=== PATIENT | female | born 1950 | race Caucasian/White ===

== ENCOUNTER → 2018-03-20 | Outpatient (CLI) | payer MEDICARE, BC ==
[~2018-03-20] MED LIST: ACIPHEX 20 MG T20 MG PO; APAP500 PO; ASPIRIN325 PO; COLACE100 MG PO; COREG3.125 MG PO; CYCLOBENZAPRINE5 MG PO; FISH OIL 1,001000 M2 PO; HYDROCHLOROTH12.5 M1 PO; HYDROCODON-ACE1 EAC7 PO; HYDROCODONE-AP1 EAC6 PO; IBUPROFEN 800800 M1 PO; LEVOTHYROXINE0.05 MG PO; MEDROLDOSEPACK PO; NORCO 10-325 T1 EACH PO; ONDANSETRON HCL4 M2 PO; OXYCODONE HCL 55 MG PO; PENICILLIN V P500 MG PO; PRINIVIL20 MG PO; VITAMIN D1000 UNI1 PO; XARELTO10 MG PO
== END ==
LOC: M.RAD 14:46
DX: M47.814 Spondylosis without myelopathy or radiculopathy, thoracic region (principal); M41.86 Other forms of scoliosis, lumbar region; M25.78 Osteophyte, vertebrae; K44.9 Diaphragmatic hernia without obstruction or gangrene; J98.11 Atelectasis; I51.7 Cardiomegaly

== ENCOUNTER → 2018-07-07 | Outpatient (CLI) | payer MEDICARE, BC | LOC: M.LAB 04:48 | DX: Z01.812 Encounter for preprocedural laboratory examination (principal) ==

== ENCOUNTER → 2018-07-09 | Outpatient (CLI) | payer MEDICARE, BC ==
[2018-07-09 09:56] LABS: ABSOLUTE EOSINOPHILS 0.1 thou/uL (0.0-0.7); ABSOLUTE LYMPHOCYTES 1.2 thou/uL (0.8-5.3); ABSOLUTE MONOCYTES 0.6 thou/uL (0.0-1.2); ABSOLUTE NEUTROPHILS 1.8 thou/uL (1.6-8.1); EOSINOPHILS 3.4 %; HEMATOCRIT 39.7 % (37.0-47.0); HEMOGLOBIN 13.4 gm/dL (12.0-15.0); LYMPHOCYTES 32.4 %; MCH 31.5 pg (26.0-34.0); MCHC 33.8 g/dL (28.0-37.0); MCV 93.2 fL (80.0-100.0); MONOCYTES 16.3 %; MPV 7.4 fl. (7.2-11.1); NUCLEATED RBCS 0 /100WBC; PLATELET COUNT* 315 thou/uL (150-400); POLYS 46.9 %; RBC 4.26 mil/uL (4.20-5.00); RDW-CV 13.5 % (10.5-14.5); WBC 3.8 thou/uL (4.0-11.0)
[2018-07-09 10:11] LABS: ALBUMIN 3.3 g/dL (3.4-5.0); CALCIUM 8.9 mg/dL (8.5-10.1); CREATININE 1.1 mg/dL (0.6-1.3); TOTAL BILIRUBIN 0.8 mg/dL (<0.1-1.0); TOTAL PROTEIN 7.4 g/dL (6.4-8.2)
== END ==
LOC: M.LAB 09:00 → M.RAD 09:00
PROVIDERS: Internal Medicine Gastroenterology
DX: K44.9 Diaphragmatic hernia without obstruction or gangrene (principal); R11.10 Vomiting, unspecified; R19.7 Diarrhea, unspecified; Z83.79 Family history of other diseases of the digestive system

== ENCOUNTER 2018-12-25 13:38 | Emergency (ER) | payer MEDICARE, BC ==
[~2018-12-25] VITALS: Ht 162.6 cm; Wt 122.5 kg
[2018-12-25] MEDS ORDERED: KEFLEX500 M1 PO (14:43)
[2018-12-25 14:53] VITALS: BP 160/73
== END 2018-12-25 14:54 | disposition home or self-care (01) ==
LOC: M.ERS 13:38
DX: S90.122A Contusion of left lesser toe(s) without damage to nail, initial encounter (principal); I10 Essential (primary) hypertension; E03.9 Hypothyroidism, unspecified; Z88.8 Allergy status to other drugs, medicaments and biological substances; Z88.2 Allergy status to sulfonamides; Z96.652 Presence of left artificial knee joint; Z90.49 Acquired absence of other specified parts of digestive tract; Z90.710 Acquired absence of both cervix and uterus; W22.8XXA Striking against or struck by other objects, initial encounter; Y92.89 Other specified places as the place of occurrence of the external cause; Y93.89 Activity, other specified; Y99.8 Other external cause status

== ENCOUNTER 2020-11-26 19:31 | Inpatient (IN) | payer MEDICARE, BC ==
[~2020-11-26] VITALS: Ht 162.6 cm; Wt 129.7 kg
--- NOTE | ~2020-11-26 | PROC ---
[address] [address] PROCEDURE REPORT Name: CASSI LAGUERRE Room: [address] IN M.R.#: [id number] Admission: 11/27/20 Attend Phys: Moris Barnard MD Discharge: 11/29/20 Date of : 48 Report #: [id number] THIS REPORT FOR: cc: Billy Ventura MD, Bruce D. MD ~ [facility],Medical Records Staff For GI report, please see the Provation report in Perceptive 7 content. By: [facility]2Medical Records Staff [facility] /JORDAN
[~2020-11-26 19:31] MED LIST changes: +KEFLEX500 M1 PO
[2020-11-26 19:34] VITALS: BP 210/79
[2020-11-26 20:00] LABS: ABSOLUTE BASOPHILS 0.1 thou/uL (0.0-0.2); ABSOLUTE EOSINOPHILS 0.3 thou/uL (0.0-0.7); ABSOLUTE LYMPHOCYTES 2.1 thou/uL (0.8-5.3); ABSOLUTE MONOCYTES 1.2 thou/uL (0.0-1.2); ABSOLUTE NEUTROPHILS 2.9 thou/uL (1.6-8.1); BASOPHILS 1.1 %; HEMOGLOBIN 13.4 gm/dL (12.0-15.0); LYMPHOCYTES 31.8 %; MCH 30.9 pg (26.0-34.0); MCHC 33.6 g/dL (28.0-37.0); MONOCYTES 17.5 %; MPV 7.2 fl. (7.2-11.1); NUCLEATED RBCS 0 /100WBC; PLATELET COUNT* 321 thou/uL (150-400); POLYS 44.6 %; RBC 4.35 mil/uL (4.20-5.00); RDW-CV 13.4 % (10.5-14.5); WBC 6.6 thou/uL (4.0-11.0)
[2020-11-26 20:05] LABS: CALCIUM 9.3 mg/dL (8.5-10.1); CREATININE 1.1 mg/dL (0.6-1.3); POTASSIUM 3.9 mmol/L (3.5-5.1)
[2020-11-26 20:10] LABS: PROTIME 10.2 Seconds (9.20-11.50)
[2020-11-26 20:15] LABS: ALBUMIN 3.3 g/dL (3.4-5.0); TOTAL BILIRUBIN 0.4 mg/dL (<0.1-1.0); TOTAL PROTEIN 7.6 g/dL (6.4-8.2)
[2020-11-26 21:17] LABS: URINE BILIRUBIN NEGATIVE (Negative); URINE BLOOD NEGATIVE (Negative); URINE CLARITY CLEAR; URINE COLOR STRAW; URINE GLUCOSE-RANDOM NEGATIVE (Negative); URINE KETONES NEGATIVE (Negative); URINE LEUKOCYTES-REFLEX NEGATIVE (Negative); URINE NITRITE-REFLEX NEGATIVE (Negative); URINE PROTEIN NEGATIVE (Negative); URINE UROBILINOGEN 0.2 E.U./dl (0.2-1.0)
[2020-11-26 23:31] VITALS: BP 142/64
[2020-11-26 23:53] VITALS: BP 129/68
[2020-11-27] VITALS (11 sets, daily range): BP systolic 112–142; BP diastolic 46–73
[2020-11-27 08:43] LABS: CHOLESTEROL 137 mg/dL (<200); HDL CHOLESTEROL 48 mg/dL (>40); LDL CHOLESTEROL 78 mg/dL (<100); SERUM ASSESSMENT Clear; TC:HDL 2.9 Ratio (Not establshd); TRIGLYCERIDE 59 mg/dL (<150); VLDL 12 mg/dL (<40)
--- NOTE | 2020-11-27 11:17 | EKG ---
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 : 1950 Requested By: Tena Kellogg Order Number: [id number] MD: Dwayne Talbot Measurements Intervals [place] Rate: 70 P: 48 [place]: 176 QRS: -6 QRSD: 109 T: 12 QT: 376 QTc: 406 Interpretive Statements Sinus rhythm Abnormal R-wave progression, early transition Inferior infarct, old Compared to ECG 07/18/2016 09:11:51 no change Electronically Signed On 11-27-2020 11:17:36 CDT by Dwayne Talbot [email or web address] <ELECTRONICALLY SIGNED> By: Dwayne Talbot MD, FAC 11/27/20 1117 35 35 Dwayne Talbot MD, [facility] /EPI
--- NOTE | 2020-11-27 11:18 | EKG ---
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 : 1950 Requested By: Tena Kellogg Order Number: [id number] MD: Dwayne Talbot Measurements Intervals [place] Rate: 71 P: 47 [place]: 169 QRS: 36 QRSD: 100 T: 51 QT: 386 QTc: 420 Interpretive Statements Sinus rhythm Abnormal inferior Q waves Minimal ST depression, inferior leads Compared to ECG 11/26/2020 19:36:39 Inferior Q waves now present no change Electronically Signed On 11-27-2020 11:18:11 CDT by Dwayne Talbot [email or web address] <ELECTRONICALLY SIGNED> By: Dwayne Talbot MD, [facility] 11/27/20 1118 36 36 Dwayne Talbot MD, [facility] /EPI
--- NOTE | 2020-11-27 13:27 | 2DMMODE ---
[place] [address] 2 D/M-MODE ECHOCARDIOGRAM Name: CASSI LAGUERRE Room: [address] IN Andres.#: [id number] Admission: 11/27/20 Attend Phys: Moris Barnard, Discharge: Date of : 48 Date of Service: 11/27/20 1326 Report #: [id number] THIS REPORT FOR: cc: Billy Ventura MD, Bruce D. MD Blick,Dwayne Will MD [facility] ~ APPROVED REPORT Study performed: 11/27/2020 09:33:55 EXAM: Comprehensive 2D, Doppler, and color-flow Echocardiogram Patient Location: In-Patient Room #: 003 Status: routine BSA: 2.28 HR: 64 bpm BP: 117/52 mmHg Rhythm: NSR Other Information Study Quality: Good Indications Dyspnea Chest Pain 2D Dimensions IVSd: 10.61 (7-11mm) LVOT Diam: 19.96 (18-24mm) LVDd: 39.98 mm PWd: 9.65 (7-11mm) Ascending Ao: 29.03 (22-36mm) LVDs: 25.20 (25-40mm) Aortic Root: 29.60 mm Volumes Left Atrial Volume (Systole) LA ESV Index: 21.10 mL/m2 Aortic Valve AoV Peak Payam.: 1.55 m/s AO Peak Gr.: 9.64 mmHg LVOT Max P.92 mmHg AO Mean Gr.: 5.35 mmHg LVOT Mean P.31 mmHg LVOT Max V: 1.32 m/s AO V2 VTI: 32.73 cm LVOT Mean V: 0.84 m/s CLAUDIA (VTI): 2.82 cm2 LVOT V1 VTI: 29.50 [place] [address] 2 D/M-MODE ECHOCARDIOGRAM Name: CASSI LAGUERRE Room: [address] IN ..#: [id number] Admission: 11/27/20 Attend Phys: Moris Barnard, Discharge: Date of : 48 Date of Service: 11/27/20 1326 Report #: [id number] Mitral Valve E/A Ratio: 1.13 MV Decel. Time: 207.19 ms MV E Max Payam.: 1.09 m/s MV PHT: 60.09 ms MVA (PHT): 3.66 cm2 TDI E/Lateral E': 7.79 E/Medial E': 10.90 Medial E' Payam.: 0.10 m/s Lateral E' Payam.: 0.14 m/s Pulmonary Valve PV Peak Payam.: 1.19 m/s PV Peak Gr.: 5.62 mmHg Tricuspid Valve RAP Estimate: 5.00 mmHg TR Peak Gr.: 30.65 mmHg RVSP: 35.00 mmHg PA Pressure: 35.00 mmHg Left Ventricle The left ventricle is normal size. There is normal LV segmental wall motion. There is normal left ventricular wall thickness. Left ventricular systolic function is normal. The left ventricular ejection fraction is within the normal range. LVEF is 55-60%. The left ventricular diastolic function is normal. Right Ventricle The right ventricle is normal size. The right ventricular systolic function is normal. Atria The left atrium size is normal. The right atrium size is normal. Aortic Valve The aortic valve is normal in structure. No aortic regurgitation is present. There is no aortic valvular stenosis. Mitral Valve The mitral valve is normal in structure. There is no mitral valve regurgitation noted. No evidence of mitral valve stenosis. Tricuspid Valve The tricuspid valve [place] [address] 2 D/M-MODE ECHOCARDIOGRAM Name: CASSI LAGUERRE Room: [address] IN [facility]#: [id number] Admission: 11/27/20 Attend Phys: Moris Barnard, Discharge: Date of : 48 Date of Service: 11/27/20 1326 Report #: [id number] regurgitation. estimated pa pressure 45 mm Hg Pulmonic Valve The pulmonary valve is normal in structure. There is no pulmonic valvular regurgitation. Great Vessels The aortic root is normal in size. IVC is normal in size and collapses >50% with inspiration. Pericardium There is no pericardial effusion. <Conclusion> LVEF is 55-60%. There is no pericardial effusion. <ELECTRONICALLY SIGNED> By: Dwayne Talbot MD, FACC 11/27/20 1326 1326 1326 Dwayne Talbot MD, FACC /INF
[2020-11-27 22:10] LABS: GLYCOHEMOGLOBIN (HGB A1C) 5.7 % (4.8-5.6)
[2020-11-28] VITALS (8 sets, daily range): BP systolic 122–149; BP diastolic 50–70
[2020-11-28 09:43] LABS: HEMATOCRIT 39.3 % (37.0-47.0); MCH 30.7 pg (26.0-34.0); MCHC 33.1 g/dL (28.0-37.0); MCV 92.6 fL (80.0-100.0); MPV 6.7 fl. (7.2-11.1); RBC 4.24 mil/uL (4.20-5.00); RDW-CV 13.6 % (10.5-14.5); WBC 4.8 thou/uL (4.0-11.0)
[2020-11-28 09:58] LABS: CALCIUM 9.5 mg/dL (8.5-10.1); CREATININE 1.1 mg/dL (0.6-1.3)
--- NOTE | 2020-11-28 15:21 | CON ---
[facility] [address] [place] [address] CONSULTATION Name: CASSI LAGUERRE Room: [address] ADM IN M.Milka.#: [id number] Admission: 11/27/20 Attend Phys: Moris Barnard MD Discharge: Date of : 48 Report #: [id number] THIS REPORT FOR: cc: Billy Ventura MD, Bruce D. MD ~ Dwayne Talbot MD [facility] DATE OF SERVICE: 11/27/2020 CARDIOLOGY CONSULTATION HISTORY OF PRESENT ILLNESS: The patient is a 70-year-old white female who I was asked to see in the hospital today after she complained of chest pain. The patient has no previous history of heart disease. She apparently had a stress test years ago. She is not very active at this time because of her age and large size. Recently, she noticed intermittent sharp chest pain. It occurs off and on. It is not related to exertion or meals. She denied any trauma to her chest. She has had no rash. She notes it is better if she presses down her chest. She does note occasional belching. It goes into her back. She has had no bleeding. There is no radiation down her arms. There is no associated diaphoresis, although she occasionally becomes short of breath. She denied any palpitation or syncope. Her finally brought her to the Emergency Room yesterday. She is admitted for further evaluation and treatment. PAST MEDICAL HISTORY: She has had previous knee surgery, ankle surgery, wrist surgery, cholecystectomy and hernia repair. She has a history of hypertension. MEDICATIONS: On admission consist of hydrochlorothiazide, lisinopril, carvedilol, Synthroid. ALLERGIES: SHE HAS A PREVIOUS INTOLERANCE TO SULFA DRUGS. There is no history of diabetes or hyperlipidemia. FAMILY HISTORY: Her father had a heart attack. SOCIAL HISTORY: She is . She and her live in [place], [place]. No smoking. No alcohol abuse. REVIEW OF SYSTEMS: She has had a previous TIA in the past with some blurred vision. She has sleep apnea, uses CPAP. No history of asthma. No history of liver disease, GI bleeding. She has had kidney stone, chronic back pain, skin cancer removed in the past. No psychiatric illness. She is obese, being 5 feet 4, [address] [place] [address] CONSULTATION Name: CASSI LAGUERRE Room: [address]#: [id number] Admission: 11/27/20 Attend Phys: Moris Barnard MD Discharge: Date of : 48 Report #: [id number] PHYSICAL EXAMINATION: GENERAL: Revealed an obese elderly female lying in bed. She appeared in no distress. VITAL SIGNS: She had a blood pressure of 120/60, pulse 60. She is afebrile. HEENT: She was anicteric. Conjunctivae pink. Mucous membranes are moist. NECK: Veins do not appear distended. No carotid bruits. Neck supple. CHEST: Clear to auscultation. CARDIOVASCULAR: Regular rate and rhythm without murmur or rub. ABDOMEN: Obese. EXTREMITIES: Had trace edema. Dorsalis pedis pulse cannot be palpated. SKIN: Cool and dry. NEUROLOGIC: Nonfocal. Her ECG on admission showed a sinus rhythm. There was no significant ST or T-wave change noted. Her workup in the Emergency Room last night, she had a portable chest x-ray showed cardiomegaly, tortuous aorta, hiatal hernia. No acute abnormality. She actually had a CT scan of the chest using a PE protocol that showed no pulmonary embolus and clear lung vega. LABORATORY WORK: Sodium 139, creatinine 1.1. Liver function studies were normal. Troponins were all less than 0.06. BNP 89. Cholesterol 137, triglyceride 59, HDL 48, LDL 78. TSH 2.7. White blood cell count 6.6, hemoglobin 13.4. IMPRESSION AND RECOMMENDATIONS: 1. Chest pain. Atypical for angina. In light of her large size, I would not recommend stress testing at this time. 2. Hypertension. The patient is on a beta-talha, MITCHELL inhibitor, diuretic. 3. Morbid obesity. 4. Sleep apnea. The patient uses CPAP. 5. Chronic back pain. <ELECTRONICALLY SIGNED> By: Dwayne Talbot MD, FACC 11/28/20 1521 0904 1022Dlakhwinder Talbot MD, FACC /nt
[2020-11-29 04:11] VITALS: BP 125/53
[2020-11-29 08:14] VITALS: BP 139/46
[2020-11-29] MEDS ORDERED: OMEPRAZOLE40 MG PO (08:36)
[2020-11-29 12:11] VITALS: BP 138/61
[2020-11-29 12:18] VITALS: BP 138/61
--- NOTE | 2020-12-04 18:06 | PATH ---
[address] [address] PATHOLOGY RPT PROCEDURE Name: CASSI LAGUERRE Room: [address] IN M.R.#: [id number] Admission: 11/27/20 Date of : 48 Discharge: 11/29/20 Report #: [id number] Path Case #: [id number] [facility] Accession Number: [id number] . 01 Material submitted: . duodenum - DUODENUM . 01 Clinical history: . R/T Erosions . . 02 Diagnosis: Duodenum: - Severe nonspecific active duodenitis with erosion, negative for granulomas, viral inclusions and dysplasia/adenomatous change. (JEROME:dayana; 12/04/2020) QMS 12/04/2020 1258 Local . 02 Electronically signed: . Romaine Cazares MD, Pathologist NPI- [id number] . 01 Gross description: . The specimen is received in formalin, labeled "[place]ruits, duodenum". Received are five segments of pale nolasco tissue ranging in size from 0.2-0.5 cm in maximum dimensions. The specimen is submitted entirely in cassette A1. (CAA; 12/01/2020) QAC/QA 12/01/2020 1252 Local . 02 Pathologist provided ICD-10: K29.80 . 02 CPT . 521743 Specimen Comment: A courtesy copy of this report has been sent to [phone] Specimen Comment: [phone], Specimen Comment: Report sent to DR VÁSQUEZ, DR VALENZUELA / DR ARREDONDO Performed at: [address], [place] [id number] MD Dennis Arredondo MD Phone: [phone] Performed at: 02 [facility] [address], [place], [place] [id number] MD Romaine Cazares MD Phone: [phone]
== END 2020-11-29 12:30 | disposition home or self-care (01) | DRG 384 ==
LOC: M.ERS 19:31 → M.TBA-ER 22:56 → M.ICU 23:32 → M.2W 11-27 10:50
PROVIDERS: Emergency Medicine; Internal Medicine; Nurse Practitioner Adult Health; ADMIT Internal Medicine; ATTEND Internal Medicine
PROC: 0D738ZZ Dilation of Lower Esophagus, Via Natural or Artificial Opening Endoscopic (ICD-10-PCS; principal; 2020-11-28)
PROC: 0DB98ZX Excision of Duodenum, Via Natural or Artificial Opening Endoscopic, Diagnostic (ICD-10-PCS; principal; 2020-11-28)
DX: K26.9 Duodenal ulcer, unspecified as acute or chronic, without hemorrhage or perforation (principal); Z68.42 Body mass index [BMI] 45.0-49.9, adult; K21.9 Gastro-esophageal reflux disease without esophagitis; K22.2 Esophageal obstruction; I16.0 Hypertensive urgency; R73.9 Hyperglycemia, unspecified; E03.9 Hypothyroidism, unspecified; E66.01 Morbid (severe) obesity due to excess calories; K44.9 Diaphragmatic hernia without obstruction or gangrene; G89.29 Other chronic pain; I10 Essential (primary) hypertension; M54.9 Dorsalgia, unspecified; Z20.822 Contact with and (suspected) exposure to COVID-19; Z96.652 Presence of left artificial knee joint; Z90.710 Acquired absence of both cervix and uterus; Z90.49 Acquired absence of other specified parts of digestive tract; Z79.899 Other long term (current) drug therapy; Z88.8 Allergy status to other drugs, medicaments and biological substances; Z88.2 Allergy status to sulfonamides

== ENCOUNTER → 2021-02-14 | Outpatient (CLI) | payer MEDICARE, BC ==
[~2021-02-14] MED LIST changes: +OMEPRAZOLE40 MG PO
== END | disposition home or self-care (01) ==
LOC: M.RAD 12:28
PROVIDERS: ATTEND Orthopaedic Surgery
DX: M25.551 Pain in right hip (principal); M25.552 Pain in left hip; M19.90 Unspecified osteoarthritis, unspecified site; Z98.890 Other specified postprocedural states; Z79.899 Other long term (current) drug therapy; Z88.2 Allergy status to sulfonamides; Z88.8 Allergy status to other drugs, medicaments and biological substances

== ENCOUNTER → 2021-08-03 | Outpatient (CLI) | payer MEDICARE, BC | LOC: M.LAB 15:30 | PROVIDERS: ATTEND Internal Medicine Gastroenterology | DX: Z01.812 Encounter for preprocedural laboratory examination (principal); Z20.822 Contact with and (suspected) exposure to COVID-19; E87.6 Hypokalemia; Z86.010 Personal history of colon polyps ==